=== PATIENT | male | born 1955 | race Caucasian/White ===

== ENCOUNTER 2017-09-17 15:31 | Emergency (ER) | payer OTHER ==
[2017-09-17] MEDS: PIPERACIL-TAZO 4.5 GM PREMIX 100 ML IV (17:14)
[2017-09-17] MEDS: ACETAMINOPHEN 325 MG TAB PO (17:15)
[2017-09-17 17:39] LABS: BACTERIA, URINE OCC /hpf; BILIRUBIN, URINE NEG (NEG); BLOOD, URINE LARGE (NEG); COMMENT (UR) CULTURE INDICATED; CULTURE IF INDICATED CULTURE INDICATED; GLUCOSE,URINE NEG (NEG); HYALINE CAST, URINE 4 /lpf (RARE); KETONE, URINE NEG (NEG); MUCUS URINE MANY /lpf (OCC); NITRITE,URINE NEG (NEG); PH, URINE 6.5 (5.0-8.5); SQUAMOUS EPITHELIAL CELL URINE <1 /hpf (0-5); URINE COLOR YELLOW (YELLW/STRAW); URINE LEUKOCYTE ESTERASE MOD (NEG)
[2017-09-17 17:51] LABS: APTT (PATIENT) 26.4 SEC (24.3-30.1); PROTHROMBIN TIME - PATIENT 10.4 SEC (9.8-11.6)
[2017-09-17 17:52] LABS: AUTOMATED NEUTROPHIL # 7.4 TH/MM3 (1.8-7.7); BASOPHIL # 0.1 TH/MM3 (0-0.2); BASOPHIL % 0.7 % (0.0-2.0); EOSINOPHIL # 0.2 TH/MM3 (0-0.4); HEMATOCRIT 46.4 % (39.0-51.0); HEMOGLOBIN 15.8 GM/DL (13.0-17.0); LYMPH % 19.1 % (9.0-44.0); LYMPHOCYTE # 2.1 TH/MM3 (1.0-4.8); MEAN CELL VOLUME 90.7 FL (80.0-100.0); MEAN CORPUSCULAR HEMOGLOBIN 30.8 PG (27.0-34.0); MEAN PLATELET VOLUME 11.9 FL (7.0-11.0); MONO % 10.4 % (0.0-8.0); MONOCYTE # 1.1 TH/MM3 (0-0.9); NEUT % 67.8 % (16.0-70.0); PLATELET COUNT 106 TH/MM3 (150-450); RED BLOOD COUNT 5.12 MIL/MM3 (4.50-5.90); RED CELL DISTRIBUTION WIDTH 14.7 % (11.6-17.2); WHITE BLOOD COUNT 10.9 TH/MM3 (4.0-11.0)
[2017-09-17] MEDS: RESP: ALBUTEROL 2.5 MG/IPRATROPIUM 0.5 MG NEB (SCH) INH ×3 (18:00)
[2017-09-17 18:02] LABS: LACTIC ACID SEPSIS PROTOCOL 1.8 mmol/L (0.4-2.0)
[2017-09-17] MEDS: VANCOMYCIN INJ 1,000 MG in SODIUM CHLOR 0.9% 250 ML INJ 250 ML IV (18:07)
[2017-09-17] MEDS: methylPREDNISolone SOD SUCC 125 MG/2 ML VIAL IV PUSH (18:07)
[2017-09-17 18:19] LABS: ALBUMIN 2.4 GM/DL (3.4-5.0); ANION GAP 8 MEQ/L (5-15); AST (GOT) 31 U/L (15-37); BICARBONATE 27.5 MEQ/L (21.0-32.0); BLOOD UREA NITROGEN 18 MG/DL (7-18); CALCIUM 8.6 MG/DL (8.5-10.1); CHLORIDE 110 MEQ/L (98-107); GLOMERULAR FILTRATION RATE 137 ML/MIN (>89); GLUCOSE,RANDOM 86 MG/DL (74-106); LIPASE 134 U/L (73-393); MAGNESIUM 1.9 MG/DL (1.5-2.5); POTASSIUM 3.5 MEQ/L (3.5-5.1); SODIUM (NA) 145 MEQ/L (136-145)
[2017-09-17 18:20] LABS: HEMO FLAGS AUTO DIFF
[2017-09-17 18:21] LABS: ALKALINE PHOSPHATASE 151 U/L (45-117); ALT (GPT) 34 U/L (12-78); PLATELET MORPHOLOGY ENLARGED (NORMAL); SCAN/DIFF AUTO DIFF CONFIRMED; TOTAL BILIRUBIN ADULT 0.5 MG/DL (0.2-1.0); TOTAL PROTEIN 6.5 GM/DL (6.4-8.2)
[2017-09-17 18:22] LABS: PLATELET ESTIMATE SMEAR LOW (NORMAL)
== END 2017-09-17 22:08 | disposition home or self-care (01) ==
LOC: NEPD 15:31
DX: J18.1 Lobar pneumonia, unspecified organism (principal); T83.511A Infection and inflammatory reaction due to indwelling urethral catheter, initial encounter; N30.90 Cystitis, unspecified without hematuria; B96.4 Proteus (mirabilis) (morganii) as the cause of diseases classified elsewhere; J90 Pleural effusion, not elsewhere classified; F17.210 Nicotine dependence, cigarettes, uncomplicated; G35 Multiple sclerosis; N20.0 Calculus of kidney; N21.0 Calculus in bladder; I45.10 Unspecified right bundle-branch block; D69.6 Thrombocytopenia, unspecified; R05 Cough; R11.0 Nausea; Z93.3 Colostomy status; Z99.3 Dependence on wheelchair
CPT/HCPCS: 71045; 74176; 80053; 81001; 83605; 83690; 83735; 85025; 85610; 85730; 87040; 87077; 87086; 87186; 87804; 87804-59; 93005; 94640; 94664; 96365; 96367; 96375; 99285-25

== ENCOUNTER 2017-10-01 11:14 | Emergency (ER) | payer OTHER ==
[~2017-10-01 11:14] MED LIST: BACL10TA PO; BACT800T5 PO; OXYB5TAB8 PO; PRED20 PO; TYLE325T PO; VENTAER INH
[2017-10-01 11:16] VITALS: BP 101/71; PULSE 117; RESP 17; TEMP 97.7; O2SAT 95
[2017-10-01 12:15] LABS: AUTOMATED NEUTROPHIL # 7.2 TH/MM3 (1.8-7.7); BASOPHIL # 0.1 TH/MM3 (0-0.2); BASOPHIL % 0.9 % (0.0-2.0); EOSINOPHIL # 0.3 TH/MM3 (0-0.4); EOSINOPHIL % 2.6 % (0.0-4.0); HEMATOCRIT 42.8 % (39.0-51.0); HEMOGLOBIN 14.6 GM/DL (13.0-17.0); LYMPH % 25.8 % (9.0-44.0); MEAN CELL VOLUME 92.4 FL (80.0-100.0); MEAN CORPUSCULAR HEMOGLOBIN 31.6 PG (27.0-34.0); MEAN CORPUSCULAR HGB CONC 34.2 % (32.0-36.0); MEAN PLATELET VOLUME 9.3 FL (7.0-11.0); MONO % 8.8 % (0.0-8.0); NEUT % 61.9 % (16.0-70.0); PLATELET COUNT 424 TH/MM3 (150-450); RED BLOOD COUNT 4.63 MIL/MM3 (4.50-5.90); RED CELL DISTRIBUTION WIDTH 15.7 % (11.6-17.2); WHITE BLOOD COUNT 11.7 TH/MM3 (4.0-11.0)
[2017-10-01] MEDS ORDERED: SODIUM CHLOR 0.9% 1000 ML INJ 1,000 ML IV SCH (12:33)
[2017-10-01 12:38] LABS: BICARBONATE 24.4 MEQ/L (21.0-32.0); CALCIUM 8.4 MG/DL (8.5-10.1); CREATININE 0.82 MG/DL (0.60-1.30)
[2017-10-01] MEDS ORDERED: SODIUM CHLORIDE 0.9% FLUSH 10 ML FLUSH IV FLUSH PRN (12:45)
[2017-10-01] MEDS ORDERED: ONDANSETRON HCL 4 MG/2 ML VIAL IVP ONE (12:45)
--- NOTE | 2017-10-01 13:36 | RADRPT ---
EXAM DATE/TIME: 10/01/2017 12:47 [place] COMPARISON: CHEST SINGLE AP, September 17, 2017, 17:05. INDICATIONS : Cough, short of breath, unable to void MEDICAL HISTORY : multiple sclerosis SURGICAL HISTORY : None. ENCOUNTER: Initial ACUITY: 3 days PAIN SCORE: 0/10 LOCATION: Bilateral chest FINDINGS: A single view of the chest demonstrates the lungs to be symmetrically aerated without evidence of mas s, infiltrate or effusion. The cardiomediastinal contours are unremarkable. Osseous structures are intact. CONCLUSION: No acute disease. Avery Cain MD on October 01, 2017 at 13:34 Board Certified Radiologist. This report was verified electronically.
[2017-10-01 13:44] LABS: PROTHROMBIN TIME - PATIENT 10.2 SEC (9.8-11.6)
[2017-10-01 13:46] LABS: BACTERIA, URINE MOD /hpf; BILIRUBIN, URINE NEG (NEG); BLOOD, URINE MOD (NEG); GLUCOSE,URINE NEG (NEG); KETONE, URINE NEG (NEG); MUCUS URINE FEW /lpf (OCC); NITRITE,URINE POS (NEG); PH, URINE 8.5 (5.0-8.5); SQUAMOUS EPITHELIAL CELL URINE 1 /hpf (0-5); TRIPLE PHOSPHATE CRYSTAL,URINE MANY /hpf; URINE COLOR YELLOW (YELLW/STRAW); URINE LEUKOCYTE ESTERASE LARGE (NEG); WHITE BLOOD CELL CLUMPS MOD
[2017-10-01 13:55] LABS: ALBUMIN 2.9 GM/DL (3.4-5.0); AST (GOT) 18 U/L (15-37); BICARBONATE 27.1 MEQ/L (21.0-32.0); BLOOD UREA NITROGEN 16 MG/DL (7-18); CALCIUM 8.5 MG/DL (8.5-10.1); CHLORIDE 103 MEQ/L (98-107); CREATININE 0.74 MG/DL (0.60-1.30); GLOMERULAR FILTRATION RATE 108 ML/MIN (>89); GLUCOSE,RANDOM 70 MG/DL (74-106); SODIUM (NA) 136 MEQ/L (136-145)
[2017-10-01 13:57] LABS: ALKALINE PHOSPHATASE 109 U/L (45-117); ALT (GPT) 20 U/L (12-78); TOTAL BILIRUBIN ADULT 0.3 MG/DL (0.2-1.0); TOTAL PROTEIN 6.9 GM/DL (6.4-8.2)
[2017-10-01] MEDS ORDERED: SODIUM CHLOR 0.9% 1000 ML INJ 1,000 ML IV ONE (14:15)
[2017-10-01] MEDS ORDERED: cefTRIAXone INJ 1,000 MG in SODIUM CHLORIDE 0.9% INJ 100 ML IV ONE (14:15)
--- NOTE | 2017-10-01 14:19 | HHI.FPPN ---
Marco Antonio Cheatham Oct 01, 2017 14:19
--- NOTE | 2017-10-01 14:24 | PD ---
HPI Chief Complaint: Complaint Time Seen by Provider: 12:28 Travel History International Travel<30 days: No Contact w/Intl Traveler<30days: No Traveled to known affect area: No History of Present Illness HPI 62-year-old male with history of paraplegia, neurogenic bladder, COPD , and recurrent urinary tract infection as well as recurrent pressure sores, returns to emergency department with question of recurrent UTI. Patient was seen here on 17 September and treated with Bactrim, and prednisone for COPD flare and urinary tract infection. Patient has a suprapubic catheter in place and he feels it is getting clogged from time to time, and he has not felt well for the past several days. Patient states he has been off his antibiotics which was Bactrim approximately 3 days. He denies significant fever or chills or other symptoms. He denies any shortness of breath or cough. [facility] Patient denies any significant pain. Patient has no known drug allergies PFSH Past Medical History Arthritis: No Asthma: No Autoimmune Disease: No Blood Disorders: No Anxiety: Yes Depression: Yes Heart Rhythm Problems: No Cancer: No Cardiovascular Problems: No High Cholesterol: No Chemotherapy: No Chest Pain: No Congestive Heart Failure: No COPD: No Cerebrovascular Accident: No Diabetes: No Diminished Hearing: No Endocrine: No Gastrointestinal Disorders: Yes (LLQ COLOSTOMY) GERD: No Glaucoma: No Genitourinary: Yes (BLADDER INCONTINENT) Headaches: Yes Hepatitis: Yes (B) Hiatal Hernia: No Hypertension: No Immune Disorder: Yes (HEP B) Kidney Stones: Yes Musculoskeletal: Yes (PARAPLEGIC) Neurologic: Yes (MS, PARAPLEGIA) Psychiatric: Yes Reproductive: No Respiratory: No Immunizations Current: No Migraines: No Myocardial Infarction: No Radiation Therapy: No Renal Failure: No Seizures: Yes Sickle Cell Disease: No Sleep Apnea: No Thyroid Disease: No Ulcer: No Tetanus Vaccination: Unknown Influenza Vaccination: No Past Surgical History Abdominal Surgery: No AICD: No Appendectomy: No Arteriovenous Shunt: No Cardiac Surgery: No Cholecystectomy: No Ear Surgery: No Endocrine Surgery: No Eye Surgery: No Genitourinary Surgery: Yes Gynecologic Surgery: No Insulin Pump: No Joint Replacement: No Oral Surgery: No Pacemaker: No Thoracic Surgery: No Tonsillectomy: Yes Other Surgery: Yes (LLQ COLOSTOMY , MULTIPLE DEBREDIMENTS) Social History Alcohol Use: No (OCC) Tobacco Use: Yes (one half pack per day) Substance Use: No (POSTIVE FOR COCAINE, PT DENIES USE) Allergies-Medications (Allergen,Severity, Reaction): Coded Allergies: No Known Allergies (Verified , 01/20/13) Reported Meds & Prescriptions Reported Meds & Active Scripts Active Keflex (Cephalexin) 500 Mg Cap 500 Mg PO Q8H 10 Days Prednisone 20 Mg Tab 20 Mg PO BID 5 Days Ventolin Hfa 18 GM Inh (Albuterol Sulfate) 90 Mcg/Act Aer 2 Puff INH Q4-6H PRN Bactrim DS (Sulfamethoxazole-Trimethoprim) 800-160 Mg Tab 1 Tab PO BID Reported Tylenol (Acetaminophen) 325 Mg Tab 325 Mg PO Q4H PRN Baclofen 10 Mg Tab Unknown Dose PO Q8HR Ditropan (Oxybutynin Chloride) 5 Mg Tab Unknown Dose PO Q12HR Physical Exam Narrative GENERAL: Patient appears in no acute distress. SKIN: Warm and dry. Normal color. Decreased turgor with mild tenting noted. Area around the suprapubic catheter appears in good condition. There is no obvious leaking. HEAD: Atraumatic. Normocephalic. EYES: Pupils equal and round. No scleral icterus. No injection or drainage. ENT: No nasal bleeding or discharge. Mucous membranes pink and moist. Pharynx is clear. Airway is patent. NECK: Trachea midline. Supple and nontender. CARDIOVASCULAR: Regular rate and rhythm. RESPIRATORY: No accessory muscle use. Clear to auscultation. Breath sounds equal bilaterally. GASTROINTESTINAL: Abdomen soft, non-tender, nondistended. Hepatic and splenic margins not palpable. MUSCULOSKELETAL: Extremities without clubbing, cyanosis, or edema. No obvious deformities. NEUROLOGICAL: Awake and alert. No obvious cranial nerve deficits. Motor grossly within normal limits. Five out of 5 muscle strength in the arms and legs. Normal speech. PSYCHIATRIC: Appropriate mood and affect; insight and judgment normal. Data Data Last Documented VS Vital Signs Date Time Temp Pulse Resp B/P (MAP) Pulse Ox O2 Delivery O2 Flow Rate FiO2 10/01/17 11:16 97.7 117 17 101/71 (81) 95 Orders Orders Complete Blood Count With Diff (10/01/17 11:26) Basic Metabolic Panel (Bmp) (10/01/17 11:26) Urinalysis - C+S If Indicated (10/01/17 11:26) Comprehensive Metabolic Panel (10/01/17 12:33) Lactic Acid (10/01/17 12:33) Prothrombin Time / Inr (Pt) (10/01/17 12:33) Act Partial Throm Time (Ptt) (10/01/17 12:33) Iv Access Insert/Monitor (10/01/17 12:33) Ecg Monitoring (10/01/17 12:33) Oximetry (10/01/17 12:33) Ondansetron Inj (Zofran Inj) (10/01/17 12:45) Sodium Chlor 0.9% 1000 Ml Inj (Ns 1000 M (10/01/17 12:33) Sodium Chloride 0.9% Flush (Ns Flush) (10/01/17 12:45) Electrocardiogram (10/01/17 12:33) Chest, Single Ap (10/01/17 12:33) Bladder/Catheter Irrigation (10/01/17 12:33) Urine Culture (10/01/17 13:20) Ceftriaxone Inj (Rocephin Inj) (10/01/17 14:15) Sodium Chlor 0.9% 1000 Ml Inj (Ns 1000 M (10/01/17 14:15) Labs Laboratory Tests Test 10/01/17 11:35 10/01/17 13:10 10/01/17 13:15 10/01/17 13:20 White Blood Count 11.7 TH/MM3 Red Blood Count 4.63 MIL/MM3 Hemoglobin 14.6 GM/DL Hematocrit 42.8 % Mean Corpuscular Volume 92.4 FL Mean Corpuscular Hemoglobin 31.6 PG Mean Corpuscular Hemoglobin Concent 34.2 % Red Cell Distribution Width 15.7 % Platelet Count 424 TH/MM3 Mean Platelet Volume 9.3 FL Neutrophils (%) (Auto) 61.9 % Lymphocytes (%) (Auto) 25.8 % Monocytes (%) (Auto) 8.8 % Eosinophils (%) (Auto) 2.6 % Basophils (%) (Auto) 0.9 % Neutrophils # (Auto) 7.2 TH/MM3 Lymphocytes # (Auto) 3.0 TH/MM3 Monocytes # (Auto) 1.0 TH/MM3 Eosinophils # (Auto) 0.3 TH/MM3 Basophils # (Auto) 0.1 TH/MM3 CBC Comment DIFF FINAL Differential Comment Blood Urea Nitrogen 16 MG/DL 16 MG/DL Creatinine 0.82 MG/DL 0.74 MG/DL Random Glucose 111 MG/DL 70 MG/DL Calcium Level 8.4 MG/DL 8.5 MG/DL Sodium Level 135 MEQ/L 136 MEQ/L Potassium Level 4.2 MEQ/L 4.2 MEQ/L Chloride Level 104 MEQ/L 103 MEQ/L Carbon Dioxide Level 24.4 MEQ/L 27.1 MEQ/L Anion Gap 7 MEQ/L 6 MEQ/L Estimat Glomerular Filtration Rate 96 ML/MIN 108 ML/MIN Prothrombin Time 10.2 SEC Prothromb Time International Ratio 1.0 RATIO Activated Partial Thromboplast Time 27.8 SEC Total Protein 6.9 GM/DL Albumin 2.9 GM/DL Alkaline Phosphatase 109 U/L Aspartate Amino Transf (AST/SGOT) 18 U/L Alanine Aminotransferase (ALT/SGPT) 20 U/L Total Bilirubin 0.3 MG/DL Lactic Acid Level 2.2 mmol/L Urine Color YELLOW Urine Turbidity CLOUDY Urine pH 8.5 Urine Specific [place] 1.019 Urine Protein 300 mg/dL Urine Glucose (UA) NEG mg/dL Urine Ketones NEG mg/dL Urine Occult Blood MOD Urine Nitrite POS Urine Bilirubin NEG Urine Urobilinogen LESS THAN 2.0 MG/DL Urine Leukocyte Esterase LARGE Urine RBC /hpf Urine WBC 126 /hpf Urine WBC Clumps MOD Urine Squamous Epithelial Cells 1 /hpf Urine Triple Phosphate Crystals MANY /hpf Urine Bacteria MOD /hpf Urine Mucus FEW /lpf Microscopic Urinalysis Comment CULTURE INDICATED MDM Medical Decision Making Medical Screen Exam Complete: Yes Emergency Medical Condition: Yes Differential Diagnosis Chronic UTI, COPD flare. Dehydration. Sepsis. Narrative Course Previous urine culture grew out mirabilis which was resistant to Bactrim which the patient was treated with on 17 September Labs show mild leukocytosis of 11.7. Coagulation studies are unremarkable Chemistries show nothing significant other than a random glucose of 70, lactic acid is 2.2, albumin is 2.9. Patient is given 1000 mL normal saline bolus. Urinalysis certainly suggestive of ongoing UTI with cloudy turbidity, 300 protein, moderate occult blood, positive nitrites, large leukocyte esterase with 126 WBCs per high-power field with moderate white blood cell clumps. There are many triple phosphate crystals and moderate bacteria. Culture is placed Patient is given 1000 mg Rocephin IV. Patient is felt stable for discharge home after his meds and saline bolus. Patient will be continued on Keflex 500 mg 3 times daily 10 days. Patient is encouraged to push fluids [facility] Patient can return to emergency department if symptoms worsen. Diagnosis Primary Impression: Urinary tract infection associated with cystostomy catheter Qualified Codes: T83.510A - Infection and inflammatory reaction due to cystostomy catheter, initial encounter; N39.0 - Urinary tract infection, site not specified Referrals: [place] [facility] Patient Instructions: Catheter-associated Urinary Tract Infection (ED), General Instructions Additional Instructions: Patient is felt stable for discharge home after his meds and saline bolus. Patient will be continued on Keflex 500 mg 3 times daily 10 days. Patient is encouraged to push fluids and [facility]. Patient can return to emergency department if symptoms worsen. Med/Other Pt SpecificInfo: Prescription(s) given Scripts Cephalexin (Keflex) 500 Mg Cap 500 MG PO Q8H for Infection for 10 Days, #30 CAP 0 Refills Prov: Paulina Lira MD 10/01/17 Disposition: DISCHARGE HOME Condition: Stable Marco Antonio Cheatham Oct 01, 2017 14:24
[2017-10-01] MEDS ORDERED: CEPH-460 PO (15:18)
[2017-10-01 16:57] VITALS: BP 106/73; O2SAT 99
--- NOTE | 2017-10-01 17:05 | PD ---
Data Data Last Documented VS Vital Signs Date Time Temp Pulse Resp B/P (MAP) Pulse Ox O2 Delivery O2 Flow Rate FiO2 10/01/17 16:57 85 18 106/73 (84) 99 10/01/17 11:16 97.7 Orders Orders Complete Blood Count With Diff (10/01/17 11:26) Basic Metabolic Panel (Bmp) (10/01/17 11:26) Urinalysis - C+S If Indicated (10/01/17 11:26) Comprehensive Metabolic Panel (10/01/17 12:33) Lactic Acid (10/01/17 12:33) Prothrombin Time / Inr (Pt) (10/01/17 12:33) Act Partial Throm Time (Ptt) (10/01/17 12:33) Iv Access Insert/Monitor (10/01/17 12:33) Ecg Monitoring (10/01/17 12:33) Oximetry (10/01/17 12:33) Ondansetron Inj (Zofran Inj) (10/01/17 12:45) Sodium Chlor 0.9% 1000 Ml Inj (Ns 1000 M (10/01/17 12:33) Sodium Chloride 0.9% Flush (Ns Flush) (10/01/17 12:45) Electrocardiogram (10/01/17 12:33) Chest, Single Ap (10/01/17 12:33) Bladder/Catheter Irrigation (10/01/17 12:33) Urine Culture (10/01/17 13:20) Ceftriaxone Inj (Rocephin Inj) (10/01/17 14:15) Sodium Chlor 0.9% 1000 Ml Inj (Ns 1000 M (10/01/17 14:15) Ed Discharge Order (10/01/17 15:25) Labs Laboratory Tests Test 10/01/17 11:35 10/01/17 13:10 10/01/17 13:15 10/01/17 13:20 White Blood Count 11.7 TH/MM3 Red Blood Count 4.63 MIL/MM3 Hemoglobin 14.6 GM/DL Hematocrit 42.8 % Mean Corpuscular Volume 92.4 FL Mean Corpuscular Hemoglobin 31.6 PG Mean Corpuscular Hemoglobin Concent 34.2 % Red Cell Distribution Width 15.7 % Platelet Count 424 TH/MM3 Mean Platelet Volume 9.3 FL Neutrophils (%) (Auto) 61.9 % Lymphocytes (%) (Auto) 25.8 % Monocytes (%) (Auto) 8.8 % Eosinophils (%) (Auto) 2.6 % Basophils (%) (Auto) 0.9 % Neutrophils # (Auto) 7.2 TH/MM3 Lymphocytes # (Auto) 3.0 TH/MM3 Monocytes # (Auto) 1.0 TH/MM3 Eosinophils # (Auto) 0.3 TH/MM3 Basophils # (Auto) 0.1 TH/MM3 CBC Comment DIFF FINAL Differential Comment Blood Urea Nitrogen 16 MG/DL 16 MG/DL Creatinine 0.82 MG/DL 0.74 MG/DL Random Glucose 111 MG/DL 70 MG/DL Calcium Level 8.4 MG/DL 8.5 MG/DL Sodium Level 135 MEQ/L 136 MEQ/L Potassium Level 4.2 MEQ/L 4.2 MEQ/L Chloride Level 104 MEQ/L 103 MEQ/L Carbon Dioxide Level 24.4 MEQ/L 27.1 MEQ/L Anion Gap 7 MEQ/L 6 MEQ/L Estimat Glomerular Filtration Rate 96 ML/MIN 108 ML/MIN Prothrombin Time 10.2 SEC Prothromb Time International Ratio 1.0 RATIO Activated Partial Thromboplast Time 27.8 SEC Total Protein 6.9 GM/DL Albumin 2.9 GM/DL Alkaline Phosphatase 109 U/L Aspartate Amino Transf (AST/SGOT) 18 U/L Alanine Aminotransferase (ALT/SGPT) 20 U/L Total Bilirubin 0.3 MG/DL Lactic Acid Level 2.2 mmol/L Urine Color YELLOW Urine Turbidity CLOUDY Urine pH 8.5 Urine Specific [place] 1.019 Urine Protein 300 mg/dL Urine Glucose (UA) NEG mg/dL Urine Ketones NEG mg/dL Urine Occult Blood MOD Urine Nitrite POS Urine Bilirubin NEG Urine Urobilinogen LESS THAN 2.0 MG/DL Urine Leukocyte Esterase LARGE Urine RBC /hpf Urine WBC 126 /hpf Urine WBC Clumps MOD Urine Squamous Epithelial Cells 1 /hpf Urine Triple Phosphate Crystals MANY /hpf Urine Bacteria MOD /hpf Urine Mucus FEW /lpf Microscopic Urinalysis Comment CULTURE INDICATED MDM Supervised Visit with PATRICIA: Yes Narrative Course The history, exam, and medical decision-making in the associated midlevel provider note were completed with my assistance. I reviewed and agree with the findings presented. I attest that I had a [id number] encounter with the patient on the same day, and personally performed and documented my assessment and findings in the medical record. *My assessment and Findings: This is a 62-year-old male who presents to the emergency department with a suprapubic catheter feeling like he has a urinary tract infection due to weakness and generalized malaise. He was recently treated with Bactrim for 7 days. Urine culture from last visit demonstrates Proteus resistant to Bactrim. Patient will be treated with Keflex. His labs are otherwise reassuring and I think he can be discharged. Diagnosis Primary Impression: Urinary tract infection associated with cystostomy catheter Qualified Codes: T83.510A - Infection and inflammatory reaction due to cystostomy catheter, initial encounter; N39.0 - Urinary tract infection, site not specified Referrals: [place] [facility] Patient Instructions: General Instructions, Catheter-associated Urinary Tract Infection (ED) Departure Forms: Tests/Procedures Additional Instruction: Patient is felt stable for discharge home after his meds and saline bolus. Patient will be continued on Keflex 500 mg 3 times daily 10 days. Patient is encouraged to push fluids [facility]. Patient can return to emergency department if symptoms worsen. Scripts Cephalexin (Keflex) 500 Mg Cap 500 MG PO Q8H for Infection for 10 Days, #30 CAP 0 Refills Prov: Paulina Lira MD 10/01/17 Disposition: 01 DISCHARGE HOME Condition: Stable Paulina Lira MD Oct 01, 2017 17:05
--- NOTE | 2017-10-02 16:10 | EKG ---
Date Performed: 10/01/2017 Time Performed: 13:37:53 PTAGE: 62 years EKG: Sinus rhythm INCOMPLETE RIGHT BUNDLE BRANCH BLOCK POSSIBLE RIGHT VENTRICULAR HYPERTROPHY ST ELEVATION, PROBABLY E KERMIT REPOLARIZATION ABNORMAL ECG Since the prior tracing, there has been no significant change PREVIOUS TRACING : 09/17/2017 17.15 DOCTOR: Avery Brown Interpretating Date/Time 10/02/2017 16:08:42
== END 2017-10-01 16:52 | disposition home or self-care (01) ==
LOC: NEPD 11:14
DX: T83.510A Infection and inflammatory reaction due to cystostomy catheter, initial encounter (principal); N39.0 Urinary tract infection, site not specified; N31.9 Neuromuscular dysfunction of bladder, unspecified; R94.31 Abnormal electrocardiogram [ECG] [EKG]; R05 Cough; G35 Multiple sclerosis; G82.20 Paraplegia, unspecified; B19.10 Unspecified viral hepatitis B without hepatic coma; J44.9 Chronic obstructive pulmonary disease, unspecified; F17.200 Nicotine dependence, unspecified, uncomplicated; Z79.899 Other long term (current) drug therapy
CPT/HCPCS: 71045; 80053; 81001; 83605; 85025; 85610; 85730; 87086; 93005; 96361; 96365; 96375; 99285; J0696; J2405; J7030; 80048